=== PATIENT | female | born 1970 | race Two or more races ===

== ENCOUNTER 2023-09-30 09:18 | Emergency (ER) | payer OTHER, SELFPAY ==
[2023-09-30 09:24] VITALS: BP 132/77; PULSE 56; TEMP 36.6; O2SAT 96; BMI 41.0
--- NOTE | 2023-09-30 09:39 | ED.EYEPROB1 ---
HPI - Eye Problem General Chief complaint: Eye Problems Stated complaint: RED EYE IRRITATION Time Seen by Provider: 09/30/23 09:31 Source: patient Mode of arrival: walk-in Limitations: no limitations History of Present Illness HPI Narrative: This patient is here for evaluation of redness over her left eye. When she woke up this morning she looked in the mirror and saw that her eye was red on the medial aspect of the left eye only. She has absolutely no other symptoms, there is no itching burning discomfort aching or soreness. She has no other bleeding disorders and no other bruising disorders. She does not have a foreign body sensation does not have light sensitivity does not have blurry vision. She is recently been diagnosed diabetes. She is scheduled to see an eye doctor for routine visit in the November of this year. She does not wear contact lenses. She has no other symptoms today. Her vital signs are noted and are normal. She will be evaluated for visual acuity although she does not complain of any alterations in her vision. Related Data Home Medications ?Medication ?Instructions ?Recorded ?Confirmed famotidine 40 mg tablet 40 mg PO DAILY 09/30/23 09/30/23 insulin glargine 100 unit/mL (3 10 unit subcut DAILY 09/30/23 09/30/23 mL) subcutaneous pen (Basaglar KwikPen U-100 Insulin) metoprolol tartrate 50 mg tablet 50 mg PO BEDTIME 09/30/23 09/30/23 (Lopressor) pantoprazole 40 mg tablet,delayed 40 mg PO DAILY 09/30/23 09/30/23 release triamterene 37.5 1 cap PO DAILY 09/30/23 09/30/23 mg-hydrochlorothiazide 25 mg capsule Allergies Allergy/AdvReac Type Severity Reaction Status Date / Time No Known Drug Allergies Allergy Verified 09/30/23 09:27 Exam Narrative Exam Narrative: Awake alert pleasant no distress. Extraocular muscles are normal. Pupillary light response is normal. The medial aspect of her left eye shows some conjunctival hemorrhage. There is no hyphema. There is no visual loss or field loss. The rest craniofacial structures are normal. There is no petechia purpura rash or other disorders of the skin on examination of her upper extremities. She does not have a headache. Her blood pressure is normal. Constitutional Vital Signs, click to edit/add: Last Vital Signs Temp 97.8 F 09/30/23 09:24 Pulse 56 L 09/30/23 09:24 Resp 18 09/30/23 09:24 BP 132/77 09/30/23 09:24 Pulse Ox 96 09/30/23 09:24 O2 Del Method Room Air 09/30/23 09:24 Course Vital Signs Vital signs: Vital Signs Temperature 97.8 F 09/30/23 09:24 Pulse Rate 56 L 09/30/23 09:24 Respiratory Rate 18 09/30/23 09:24 Blood Pressure 132/77 09/30/23 09:24 Pulse Oximetry 96 09/30/23 09:24 Oxygen Delivery Method Room Air 09/30/23 09:24 Temperature 97.8 F 09/30/23 09:24 Pulse Rate 56 L 09/30/23 09:24 Respiratory Rate 18 09/30/23 09:24 Blood Pressure 132/77 09/30/23 09:24 Pulse Oximetry 96 09/30/23 09:24 Oxygen Delivery Method Room Air 09/30/23 09:24 MDM - Eye Problem MDM Narrative Medical decision making narrative: This patient has asymptomatic subconjunctival hemorrhage to the left eye only. I do not believe she needs any further workup at this time. She is scheduled to see an eye doctor for routine visit in the near future. She is not on any aspirin products. She is advised to keep some cold compresses on the eye. Discharge Plan Discharge Stand Alone Forms: Portal Instructions Chief Complaint: Eye Problems Clinical Impression: Subconjunctival hemorrhage Patient Disposition: Home, Self-Care Time of Disposition Decision: 09:42 Prescriptions / Home Meds: No Action pantoprazole 40 mg tablet,delayed release (DR/EC) 40 mg PO DAILY triamterene-hydrochlorothiazid 37.5-25 mg capsule 1 cap PO DAILY famotidine 40 mg tablet 40 mg PO DAILY metoprolol tartrate [Lopressor] 50 mg tablet 50 mg PO BEDTIME insulin glargine [Basaglar KwikPen U-100 Insulin] 100 unit/mL (3 mL) insulin pen 10 unit subcut DAILY Print Language: [place] Additional Instructions: Cold compresses to the eye. Avoid aspirin products for 1 week
[2023-09-30 10:02] VITALS: BP 108/67; PULSE 57; O2SAT 97
== END 2023-09-30 10:04 | disposition home or self-care (01) ==
LOC: ER 09:46
PROVIDERS: Emergency Provider Emergency Medicine Emergency Medical Services; PCP Nurse Practitioner Family
DX: H11.32 Conjunctival hemorrhage, left eye (principal); E11.9 Type 2 diabetes mellitus without complications; Z79.899 Other long term (current) drug therapy; Z79.4 Long term (current) use of insulin
CPT/HCPCS: 99283